=== PATIENT | female | born 1985 | race American Indian/Alaskan Native ===

== ENCOUNTER 2016-11-30 06:55 | Inpatient (IN) | payer MEDICAID ==
[2016-11-30] MEDS ORDERED: PHENERGAN PO PRN ×2 (07:25→11:00)
[2016-11-30] MEDS ORDERED: XYLOCAINE 2% INFILTRATI ONE (07:25)
[2016-11-30] MEDS ORDERED: BRETHINE SUB-Q PRN (07:25)
[2016-11-30] MEDS ORDERED: STADOL IV PRN (07:25)
[2016-11-30] MEDS ORDERED: ePHEDrine SULFATE IV PRN (07:25)
[2016-11-30] MEDS ORDERED: BRETHINE IVP PRN (07:30)
[2016-11-30 08:00] LABS: Hematocrit 36.2 % (30.3-42.9); Hemoglobin 11.8 gm/dl (10.1-14.3); Mean Corpuscular HGB Conc 33 % (30-34); Mean Corpuscular Hemoglobin 27 pg (28-32); Mean Corpuscular Volume 84 fl (79-97); Red Blood Count 4.31 M/mm3 (3.65-5.03); Red Cell Distribution Width 14.4 % (13.2-15.2); White Blood Count 10.5 K/mm3 (4.5-11.0)
[2016-11-30] MEDS ORDERED: PITOCin/NS 20 UNIT/1000ML DRIP 20 UNITS/1,000 ML BAG IV SCH (08:00)
[2016-11-30] MEDS ORDERED: LACTATED RINGERS 1,000 ML IV SCH (08:00)
[2016-11-30 08:02] LABS: Urine Drugs of Abuse Note Disclamer
[2016-11-30 08:03] LABS: Platelet Count 63 K/mm3 (140-440)
--- NOTE | 2016-11-30 08:36 | History and Physical Report ---
History of Present Illness Date of examination: 11/30/16 Date of admission: 11/30/16 06:57 History of present illness: This is a walk-in patient was [facility]. Patient presented with regular contractions and ruptured the membranes. Patient initial exam 5 cm. She progressed quickly to complete dilatation. Patient is a history of decreased platelets and states she had a platelet count of 30,000 weeks ago and has been on 20 mg of prednisone since. Patient was actively pushing when I arrived Past History Past Medical History: other (a station of thrombocytopenia) Past Surgical History: no surgical history - Obstetrical History Expected Date of Delivery: 12/11/16 Actual Gestation: 38 Week(s) 3 Day(s) : 6 Para: 5 Medications and Allergies Allergies Allergy/AdvReac Type Severity Reaction Status Date / Time No Known Allergies Allergy Unverified 11/30/16 07:27 Active Meds: Active Medications Butorphanol Tartrate (Stadol) 2 mg IV Q2H PRN PRN Reason: Pain , Severe (7-10) Ampicillin Sodium (Polycillin/Ns 1 Gm/50 Ml) 1 gm in 50 mls @ 100 mls/hr IV Q4H ZOEY PRN Reason: Protocol Lactated Ringer's (Lactated Ringers) 1,000 mls @ 125 mls/hr IV DIRECT ZOEY Oxytocin/Sodium Chloride (Pitocin/Ns 20 Unit/1000ml Drip) 20 units in 1,000 mls @ 125 mls/hr IV DIRECT ZOEY Mineral Oil (Mineral Oil) 30 ml PO QHS PRN PRN Reason: Constipation Promethazine HCl (Phenergan) 25 mg PO Q6H PRN PRN Reason: Nausea And Vomiting - Vital Signs Vital signs: Vital Signs Pulse BP 78 125/78 11/30/16 07:09 11/30/16 07:09 Temp Pulse Resp BP Pulse Ox 98.2 F 69 106/51 11/30/16 07:40 11/30/16 08:26 11/30/16 08:26 - Physical Exam Breasts: Positive: deferred Cardiovascular: Regular rate Lungs: Positive: Normal air movement Abdomen: Positive: normal appearance, soft Genitourinary (Female): Positive: normal external genitalia Vagina: Positive: normal moisture Anus/Rectum: Positive: normal perianal skin Extremities: Positive: normal - Obstetrical FHR: category 2 Cervical Dilatation: 10 Cervical Effacement Percentage: 100 station: +1 Uterine Contraction Pattern: Regular Uterine Contraction Intensity: Strong/Firm Results Result Diagrams: 11/30/16 07:30 Abnormal lab results 11/30/16 Range/Units 07:30 MCH 27 L (28-32) pg Plt Count 63 L (140-440) K/mm3 All other labs normal. Assessment and Plan - Patient Problems (1) with 38 completed weeks gestation Current Visit: Yes Status: Acute (2) Gestational thrombocytopenia without hemorrhage in third trimester Current Visit: Yes Status: Acute (3) Active labor at term Current Visit: Yes Status: Acute (4) Premature rupture of membranes Current Visit: Yes Status: Acute Qualifiers: PROM onset of labor timing: onset of labor within 24 hours of rupture PROM gestational age: full term Qualified Code(s): O42.02 - Full-term premature rupture of membranes, onset of labor within 24 hours of rupture Plan to address problem: Admit for delivery. Will obtain labs patient without any records
--- NOTE | 2016-11-30 08:48 | Procedure Note ---
OB Delivery Note - Delivery Date of Delivery: 11/30/16 Surgeon: ASHLEY COLEY Estimated blood loss: 300cc - Vaginal Delivery presentation: vertex Delivery position: OA Intrapartum events: precipitous labor- <3hr Delivery induction: none Delivery monitor: external FHT, external uterine Route of delivery: Delivery placenta: spontaneous Delivery cord: nuchal cord Episiotomy: none Delivery laceration: none Anesthesia: none Delivery comments: Upon transferring from triage in labor and delivery patient was completely dilated and quickly delivered the complicated . - A at 1 minute: 8 at 5 minutes: 9 Gender: Male
[2016-11-30] MEDS ORDERED: TYLENOL PO PRN (10:30)
[2016-11-30] MEDS: FEOSOL PO SCH ×2 (10:35→22:20)
[2016-11-30] MEDS: PRENATAL VITAMIN PO SCH (10:36)
[2016-11-30] MEDS ORDERED: BENADRYL PO PRN (11:00)
[2016-11-30] MEDS ORDERED: DERMOPLAST TP PRN (11:00)
[2016-11-30] MEDS ORDERED: MILK OF MAGNESIA PO PRN (11:00)
[2016-11-30] MEDS ORDERED: SODIUM CHLORIDE FLUSH SYRINGE 10 ML IV NR (11:00)
[2016-11-30] MEDS ORDERED: POLYCILLIN/NS 1 GM/50 ML 1 GM/50 ML BAG IV SCH (11:00)
[2016-11-30] MEDS ORDERED: TUCKS PAD TP PRN (11:00)
[2016-11-30] MEDS ORDERED: LANSINOH TP PRN (11:00)
[2016-11-30] MEDS ORDERED: DULCOLAX PR PRN (11:00)
[2016-11-30 11:03] LABS: HIV-1 Antigen p24 Non React (Non React); HIVR-1/2 Ab Non React (Non React)
[2016-11-30] MEDS: MOTRIN PO SCH ×2 (12:21→18:28)
[2016-11-30 17:32] LABS: Hematocrit 36.7 % (30.3-42.9); Hemoglobin 11.7 gm/dl (10.1-14.3); Mean Corpuscular HGB Conc 32 % (30-34); Mean Corpuscular Hemoglobin 27 pg (28-32); Mean Corpuscular Volume 84 fl (79-97); Red Blood Count 4.37 M/mm3 (3.65-5.03); Red Cell Distribution Width 14.3 % (13.2-15.2); White Blood Count 12.5 K/mm3 (4.5-11.0)
[2016-11-30 17:38] LABS: Platelet Count 58 K/mm3 (140-440)
[2016-11-30] MEDS ORDERED: MINERAL OIL PO PRN (22:00)
[2016-11-30] MEDS: COLACE PO SCH (22:20)
[2016-12-01] MEDS: MOTRIN PO SCH ×2 (05:42→18:29)
--- NOTE | 2016-12-01 08:20 | Discharge Summary ---
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 Condition at discharge: Good Disposition: DISCHARGED TO HOME OR SELFCARE - Discharge Diagnoses (1) Spontaneous vaginal delivery Status: Acute Comment: follow up with OB provider in 4-6 weeks Plan - Provider Discharge Summary Activity: routine, no sex for 6 weeks, no heavy lifting 4 weeks, no strenuous exercise Diet: routine Instructions: routine Additional instructions: [] Smoking cessation referral if applicable(refer to patient education folder for contact #) [] Refer to [facility] Booklet Call your doctor immediately for: * Fever > 100.5 * Heavy vaginal bleeding ( >1 pad per hour) * Severe persistent headache * Shortness of breath * Reddened, hot, painful area to leg or breast * Drainage or odor from incision. * Keep incision clean and dry at all times and follow doctor's instructions regarding bathing/showering - Follow up plan Follow up: ASHLEY COLEY MD [Primary Care Provider] - 6 Weeks (Call your OB provider and schedule a visit in 4-6 weeks. Over the counter Motrin for cramping is recommended. Call with concerns. )
[2016-12-01] MEDS: NORCO 5/325 PO PRN (08:45)
[2016-12-01] MEDS: FEOSOL PO SCH ×2 (10:48→23:05)
[2016-12-01] MEDS: PRENATAL VITAMIN PO SCH (10:49)
[2016-12-01] MEDS: NYSTATIN PO SCH (14:52)
[2016-12-01] MEDS: COLACE PO SCH ×2 (16:22→23:04)
[2016-12-02] MEDS: NORCO 5/325 PO PRN (08:00)
[2016-12-02] MEDS: NYSTATIN PO SCH (09:17)
[2016-12-02] MEDS: FEOSOL PO SCH (10:24)
[2016-12-02] MEDS: PRENATAL VITAMIN PO SCH (10:25)
[2016-12-02 11:07] VITALS: BP 98/68
--- NOTE | 2016-12-03 08:12 | Vascular Lab Report ---
Left Lower Extremity Venous Duplex Study: Reason for Exam: Left leg pain. Comments on the Right: A limited duplex study was done of the proximal veins of the right lower extremity. All veins visualized are freely compressible without evidence of internal echogenicity. Flow is spontaneous and phasic throughout. No evidence of acute or chronic thrombus is seen in any of the vessels visualized. Comments on the Left: All veins visualized are freely compressible without evidence of internal echogenicity. Flow is spontaneous and phasic throughout. No evidence of acute or chronic thrombus is seen in any of the vessels visualized. Impression: No evidence of acute or chronic deep venous thrombosis in the left lower extremity.
== END 2016-12-02 11:00 | disposition home or self-care (01) | DRG 775 ==
LOC: TRG 06:55 → LD 06:57 → OB 09:00
PROVIDERS: ADMIT Obstetrics & Gynecology; ATTEND Obstetrics & Gynecology
PROC: 10E0XZZ Delivery of Products of Conception, External Approach (ICD-10-PCS; principal; 2016-11-30)
DX: O42.02 Full-term premature rupture of membranes, onset of labor within 24 hours of rupture (principal); O99.12 Other diseases of the blood and blood-forming organs and certain disorders involving the immune mechanism complicating childbirth; D69.6 Thrombocytopenia, unspecified; O69.81X0 Labor and delivery complicated by cord around neck, without compression, not applicable or unspecified; O62.3 Precipitate labor; Z3A.38 38 weeks gestation of pregnancy; Z37.0 Single live birth
CPT/HCPCS: 36415; 80307; 85027; 85660; 86706; 86762; 86803; 86850; 86900; 86901; 87806; 99211; A6250; G0463; J2590; J7120

== ENCOUNTER 2018-01-12 10:41 | Inpatient (IN) | payer MEDICAID ==
[2018-01-12] MEDS ORDERED: ZOFRAN IV PRN (10:47)
[2018-01-12] MEDS ORDERED: BRETHINE IVP PRN (10:47)
[2018-01-12] MEDS ORDERED: ePHEDrine SULFATE IV PRN (10:47)
[2018-01-12] MEDS ORDERED: SUBLIMAZE IV PRN (10:47)
[2018-01-12] MEDS ORDERED: STADOL IV PRN (10:47)
[2018-01-12] MEDS ORDERED: MINERAL OIL PO PRN (10:47)
--- NOTE | 2018-01-12 10:55 | History and Physical Report ---
History of Present Illness Date of examination: 01/12/18 (sent from office advance dilated; @ 39 weeks ) Date of admission: 01/12/18 10:41 History of present illness: EDC Confirmation: 01/19/2018 Gestational Age: 14 3/7 weeks Past History : 9 Premature Births: 0 Para: 6 Aborta: 2 Past Medical History: thrombocytopenia Past Surgical History: negative Past Medical History Anesthesia Complications: negative Anemia: negative Autoimmune Disorder: negative Bleeding Disorder: negative Blood Transfusions: negative Breast Disease: negative Diabetes: negative Heart Disease: negative Hypertension: negative Hepatitis/Liver Disease: negative Kidney Disease/UTI: negative Neurologic/Epilepsy/Migraines: negative Phlebitis/Varicosities: negative Psychiatric: negative Pulmonary Disease/Asthma: negative Thyroid Disease: negative Hospitalizations: negative Surgery (Non-electrocardiographic technician): negative Abnormal PAP: negative HOLA Exposure: negative Infertility: negative Uterine Anomaly: negative Uterine Surgery (not C/S): negative Other Gynecologic Problems: negative Family Hx: Lupus - sister, aunt,MGM No FH cancer 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 of genital herpes: no Partner hx. of genital herpes: no Rash, Viral, or Febrile illness since last LMP? no Varicella/Chicken Pox Status: Previous Disease Genetic History Congenital Heart Defect: Mom: no Dad: no Fernando Disease: Mom: no Dad: no Thalassemia Mom: no Dad: no Neural Tube Defect Mom: no Dad: no Down's Syndrome Mom: no Dad: no Pradeep-Sachs Mom: no Dad: no Sickle Cell Disease/Trait Mom: no Dad: no Hemophilia Mom: no Dad: no Muscular Dystrophy Mom: no Dad: no Cystic Fibrosis Mom: no Dad: no [place] Chorea Mom: no Dad: no Mental Retardation Mom: no Dad: no Fragile X Mom: no Dad: no Other Genetic/Chromosomal Disorder Mom: no Dad: no Child w/other defect Mom: no Dad: no Enviromental Exposures Xray Exposure: no Medication, drug, or alcohol use since LMP: no Chemical/Other Exposure: no Exposure to Cat Liter: no Hx of Parvovirus (Fifth Disease): no Occupational Exposure to Children: none Active Medications (reviewed today): None Current Allergies (reviewed today): No known allergies Laboratory Results Urine HCG: positive Review of Systems General Denies fever, chills, sweats, anorexia, fatigue, weakness, malaise, weight loss and sleep disorder. Denies nausea, vomiting, headache, swelling of legs, abdominal pain, vaginal discharge, vaginal bleeding and contractions. Denies vaginal discharge, incontinence, dysuria, hematuria, urinary frequency, amenorrhea, menorrhagia, abnormal vaginal bleeding, pelvic pain, genital sores, decreased libido, painful periods, painful sex, urinary urgency, hot flashes, vaginal dryness, vaginal itching and vaginal odor. CV Denies chest pains, palpitations, syncope, dyspnea on exertion, orthopnea, PND and peripheral edema. Resp Denies cough, dyspnea at rest, excessive sputum, hemoptysis, wheezing and pleurisy. GI Denies nausea, vomiting, diarrhea, constipation, change in bowel habits, abdominal pain, melena, hematochezia, jaundice, gas/bloating, indigestion/ heartburn, dysphagia and odynophagia. Endo Denies cold intolerance, heat intolerance, polydipsia, polyphagia, polyuria and unusual weight change. Breast Denies left breast lump, right breast lump, nipple discharge, bloody discharge from nipple, breast pain, abnormal mammogram and breast enlargement. MS Denies back pain, joint pain, joint swelling, muscle cramps, muscle weakness, stiffness, arthritis, sciatica, restless legs, leg pain at night and leg pain with exertion. Derm Denies rash, itching, dryness and suspicious lesions. Neuro Denies paralysis, paresthesias, headache, seizures, tremors, vertigo, transient blindness, frequent falls, frequent headaches and difficulty walking. Psych Denies depression, anxiety, irritability and mood swings. Eyes Denies blurring, diplopia, irritation, discharge, vision loss, eye pain and photophobia. ENT Denies earache, ear discharge, tinnitus, decreased hearing, nasal congestion, nosebleeds, sore throat and hoarseness. Allergy Denies urticaria, allergic rash, hay fever and recurrent infections. Heme Denies abnormal bruising, bleeding and enlarged lymph nodes. 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/Vagina: No lesions, normal BUS, normal rugae Cervix: No lesions; no cervical motion tenderness Uterus: normal size and position, midline, mobile Fundal Ht: 14 weeks Adnexae: no masses or tenderness Rectovaginal: no masses or tenderness Past History - Obstetrical History Expected Date of Delivery: 01/19/18 Actual Gestation: 39 Week(s) 0 Day(s) : 9 Para: 6 Hx # Term Pregnancies: 6 Induced : 2 Number of Living Children: 6 Medications and Allergies Allergies Allergy/AdvReac Type Severity Reaction Status Date / Time No Known Allergies Allergy Unverified 11/30/16 07:27 Home Medications Medication Instructions Recorded Confirmed Last Taken Type Ferrous Sulfate [Feosol] 325 mg PO QDAY 11/30/16 11/30/16 11/29/16 History 325 mg Vit-Fe Fumar-FA [ 1 tab PO QDAY 11/30/16 11/30/16 11/29/16 History Vitamin] 1 tab predniSONE [Deltasone] 20 mg PO TID 11/30/16 11/30/16 11/29/16 History 20 mg - Physical Exam Breasts: Positive: normal Cardiovascular: Regular rate, Normal S1, Normal S2 Lungs: Positive: Normal air movement Abdomen: Positive: normal appearance, soft, normal bowel sounds. Negative: distention, tenderness Genitourinary (Female): Positive: normal external genitalia Vulva: both: normal Vagina: Positive: normal moisture. Negative: discharge Cervix: Negative: lesion, discharge Uterus: Positive: normal size, normal contour Adnexa: both: normal Anus/Rectum: Positive: normal perianal skin, heme negative. Negative: rectal mass, hemorrhoids Extremities: Positive: normal Deep Tendon Reflex Grade: Normal +2 - Obstetrical FHR: category 1 Uterine Contraction Monitor Mode: External Cervical Dilatation: 6 (by CNM in office) Cervical Effacement Percentage: 90 station: 0 Uterine Contraction Pattern: Irregular Uterine Tone Measurement Phase: Resting Uterine Contraction Intensity: Mild Results All other labs normal. Strep Gp B HEMAL Negative HBsAg Screen Negative Negative *1 RPR Non Reactive Non Reactive *2 Rubella Antibodies, IgG 9.49 index Immune >0.99 *3 Non-immune <0.90 Equivocal 0.90 - 0.99 Immune >0.99 ABO Grouping A *4 Rh Factor Positive *5 Please note: Prior records for this patient's ABO / Rh type are not available for additional verification. Antibody Screen Negative Negative *6 WBC 6.1 x10E3/uL 3.4-10.8 *7 RBC 4.35 x10E6/uL 3.77-5.28 *8 Hemoglobin 11.5 g/dL 11.1-15.9 *9 Effective August 24, 2017 the reference interval for Hemoglobin MALES only will be changing to: Males 13-15 years: 12.6 - 17.7 Males >15 years: 13.0 - 17.7 Hematocrit 34.7 % 34.0-46.6 *10 MCV 80 fL 79-97 *11 MCH [L] 26.4 pg 26.6-33.0 *12 MCHC 33.1 g/dL 31.5-35.7 *13 RDW [H] 15.8 % 12.3-15.4 *14 Platelets [L] 131 x10E3/uL 150-379 *15 Neutrophils 66 % Not Estab. *16 Lymphs 23 % Not Estab. *17 Monocytes 8 % Not Estab. *18 Eos 3 % Not Estab. *19 Basos 0 % Not Estab. *20 ! Immature Cells <No Reported Value> *21 Neutrophils (Absolute) 4.0 x10E3/uL 1.4-7.0 *22 Lymphs (Absolute) 1.4 x10E3/uL 0.7-3.1 *23 Monocytes(Absolute) 0.5 x10E3/uL 0.1-0.9 *24 Eos (Absolute) 0.2 x10E3/uL 0.0-0.4 *25 Baso (Absolute) 0.0 x10E3/uL 0.0-0.2 *26 ! Immature Granulocytes 0 % Not Estab. *27 ! Immature Grans (Abs) 0.0 x10E3/uL 0.0-0.1 *28 ! NRBC <No Reported Value> *29 Hematology Comments: <No Reported Value> *30 Tests: (2) AFP Tetra ([id number]) ! Results Report *31 ! Test Results: *Screen Negative* *32 ! Tests: (3) Cystic Fibrosis Profile ([id number]) ! CF, Screen Comment: *55 RESULTS: Negative for 32 mutations analyzed Tests: (4) HB Solu + Rflx Frac (324001) Hemoglobin (Hgb) Solubility: Sickle Cell Trait [A] Positive Negative *57 Tests: (6) Panel 827607 ([id number]) HIV Screen 4th Generation wRfx Non Reactive Non Reactive *65 Tests: (7) HCV Ab w/Rflx to Verification ([id number]) ! HCV Ab <0.1 s/co ratio 0.0-0.9 *66 Tests: (8) Comment: ([id number]) ! Comment: SPRCS *67 Non reactive HCV antibody screen is consistent with no HCV infection, unless recent infection is suspected or other evidence exists to indicate HCV infection. Tests: (9) Urine Culture, Routine ([id number]) Urine Culture, Routine Final report *68 Tests: (10) Result ([id number]) ! Result 1 MUG *69 Mixed urogenital micaela 10,000-25,000 colony forming units per mL Assessment and Plan 32yo @ 39 weeks with advance dilatation. Thrombocytopenia Pt declined to see hematology. Pt declines regional anesthesia. GBS negative. Orders in EMR Anticipate delivery.
[2018-01-12] MEDS ORDERED: PITOCin/NS 20 UNIT/1000ML DRIP 20 UNITS/1,000 ML BAG IV SCH ×2 (11:00→16:00)
[2018-01-12] MEDS ORDERED: PITOCin/NS 30 UNIT/500ML 30 UNITS/500 ML BAG IV SCH (11:00)
[2018-01-12] MEDS ORDERED: XYLOCAINE 2% INFILTRATI ONE (11:00)
[2018-01-12 11:48] LABS: Mean Corpuscular Volume 80 fl (79-97)
[2018-01-12 11:57] LABS: Hematocrit 34.7 % (30.3-42.9); Hemoglobin 11.4 gm/dl (10.1-14.3); Mean Corpuscular HGB Conc 33 % (30-34); Mean Corpuscular Hemoglobin 26 pg (28-32); Red Blood Count 4.33 M/mm3 (3.65-5.03); Red Cell Distribution Width 13.4 % (13.2-15.2)
[2018-01-12 11:58] LABS: Platelet Count 74 K/mm3 (140-440)
[2018-01-12] MEDS: LACTATED RINGERS 1,000 ML IV SCH (12:15)
[2018-01-12] MEDS ORDERED: BICITRA ONE (15:31)
[2018-01-12] MEDS ORDERED: PEPCID IV ONE (15:32)
[2018-01-12] MEDS ORDERED: REGLAN ONE (15:32)
[2018-01-12] MEDS ORDERED: REGLAN IV SCH (15:32)
--- NOTE | 2018-01-12 15:32 | Progress Note ---
Assessment and Plan SVE 6-7,90,-1 Was attempting internal monitors Discovered face presentation c/ s called Dr.Royster arnold Subjective - Subjective Date of service: 01/12/18 (sve face presentation) Interval history: EDC Confirmation: 01/19/2018 Gestational Age: 14 3/7 weeks Past History : 9 Premature Births: 0 Para: 6 Aborta: 2 Past Medical History: thrombocytopenia Past Surgical History: negative Past Medical History Anesthesia Complications: negative Anemia: negative Autoimmune Disorder: negative Bleeding Disorder: negative Blood Transfusions: negative Breast Disease: negative Diabetes: negative Heart Disease: negative Hypertension: negative Hepatitis/Liver Disease: negative Kidney Disease/UTI: negative Neurologic/Epilepsy/Migraines: negative Phlebitis/Varicosities: negative Psychiatric: negative Pulmonary Disease/Asthma: negative Thyroid Disease: negative Hospitalizations: negative Surgery (Non-musical instrument maker): negative Abnormal PAP: negative HOLA Exposure: negative Infertility: negative Uterine Anomaly: negative Uterine Surgery (not C/S): negative Other Gynecologic Problems: negative Family Hx: Lupus - sister, aunt,MGM No FH cancer 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 of genital herpes: no Partner hx. of genital herpes: no Rash, Viral, or Febrile illness since last LMP? no Varicella/Chicken Pox Status: Previous Disease Genetic History Congenital Heart Defect: Mom: no Dad: no Fernando Disease: Mom: no Dad: no Thalassemia Mom: no Dad: no Neural Tube Defect Mom: no Dad: no Down's Syndrome Mom: no Dad: no Pradeep-Sachs Mom: no Dad: no Sickle Cell Disease/Trait Mom: no Dad: no Hemophilia Mom: no Dad: no Muscular Dystrophy Mom: no Dad: no Cystic Fibrosis Mom: no Dad: no [place] Chorea Mom: no Dad: no Mental Retardation Mom: no Dad: no Fragile X Mom: no Dad: no Other Genetic/Chromosomal Disorder Mom: no Dad: no Child w/other defect Mom: no Dad: no Enviromental Exposures Xray Exposure: no Medication, drug, or alcohol use since LMP: no Chemical/Other Exposure: no Exposure to Cat Liter: no Hx of Parvovirus (Fifth Disease): no Occupational Exposure to Children: none Active Medications (reviewed today): None Current Allergies (reviewed today): No known allergies Laboratory Results Urine HCG: positive Review of Systems General Denies fever, chills, sweats, anorexia, fatigue, weakness, malaise, weight loss and sleep disorder. Denies nausea, vomiting, headache, swelling of legs, abdominal pain, vaginal discharge, vaginal bleeding and contractions. Denies vaginal discharge, incontinence, dysuria, hematuria, urinary frequency, amenorrhea, menorrhagia, abnormal vaginal bleeding, pelvic pain, genital sores, decreased libido, painful periods, painful sex, urinary urgency, hot flashes, vaginal dryness, vaginal itching and vaginal odor. CV Denies chest pains, palpitations, syncope, dyspnea on exertion, orthopnea, PND and peripheral edema. Resp Denies cough, dyspnea at rest, excessive sputum, hemoptysis, wheezing and pleurisy. GI Denies nausea, vomiting, diarrhea, constipation, change in bowel habits, abdominal pain, melena, hematochezia, jaundice, gas/bloating, indigestion/ heartburn, dysphagia and odynophagia. Endo Denies cold intolerance, heat intolerance, polydipsia, polyphagia, polyuria and unusual weight change. Breast Denies left breast lump, right breast lump, nipple discharge, bloody discharge from nipple, breast pain, abnormal mammogram and breast enlargement. MS Denies back pain, joint pain, joint swelling, muscle cramps, muscle weakness, stiffness, arthritis, sciatica, restless legs, leg pain at night and leg pain with exertion. Derm Denies rash, itching, dryness and suspicious lesions. Neuro Denies paralysis, paresthesias, headache, seizures, tremors, vertigo, transient blindness, frequent falls, frequent headaches and difficulty walking. Psych Denies depression, anxiety, irritability and mood swings. Eyes Denies blurring, diplopia, irritation, discharge, vision loss, eye pain and photophobia. ENT Denies earache, ear discharge, tinnitus, decreased hearing, nasal congestion, nosebleeds, sore throat and hoarseness. Allergy Denies urticaria, allergic rash, hay fever and recurrent infections. Heme Denies abnormal bruising, bleeding and enlarged lymph nodes. 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 Absent: distention, tenderness Uterus: Present: normal FHR: auscultation normal, category 1 Cervical Dilatation: 6.5 (face) Cervical Effacement Percentage: 90 station: -1 Uterine Contraction Pattern: Regular Uterine Tone Measurement Phase: Resting Uterine Contraction Intensity: Moderate Extremities: normal Deep Tendon Reflex Grade: Normal +2 - Labs Labs: Abnormal Labs 01/12/18 11:15 MCH 26 L Plt Count 74 L Laboratory Results - last 24 hr 01/12/18 01/12/18 01/12/18 11:13 11:15 11:15 WBC 5.2 RBC 4.33 Hgb 11.4 Hct 34.7 MCV 80 MCH 26 L MCHC 33 RDW 13.4 Plt Count 74 L RPR Nonreactive Blood Type A POSITIVE Antibody Screen Negative
[2018-01-12] MEDS ORDERED: ANCEF/STERILE WATER 2 GM/20 ML 2 GM/20 ML SYRINGE IV NR (16:00)
[2018-01-12] MEDS ORDERED: LACTATED RINGERS 1,000 ML IV SCH (16:00)
[2018-01-12] MEDS ORDERED: DIPRIVAN 10 MG/ML IV ONE (16:00)
[2018-01-12] MEDS ORDERED: XYLOCAINE MPF 2% ONE (16:04)
[2018-01-12] MEDS ORDERED: QUELICIN ONE (16:04)
[2018-01-12] MEDS ORDERED: SUBLIMAZE ONE (16:06)
--- NOTE | 2018-01-12 16:12 | Event Note ---
Date: 01/12/18 Called by [facility] for Breech presentation, however bedside US revealed cephalic. Pelvic exam revealed hand/wrist/forearm presentation at 6.5cm/80/-1. Arm only descends with contractions and head is being pushed to maternal right; she is a grand multip who presented at ~10a at 6cm. Contractions have been adequate with minimal cervical change. Findings were explained to the patient and her , concern for arm injury and arrest of dilation explained. Options reviewed, continued ELSIE with risks vs c/s and risks. Questions were encouraged and answered. Patient and voiced understanding and desire to proceed with delivery. Consents reviewed and signed.
[2018-01-12] MEDS ORDERED: METHERGINE IM ONE (16:15)
[2018-01-12] MEDS ORDERED: ANCEF/STERILE WATER 2 GM/20 ML IV ONE (16:29)
[2018-01-12] MEDS: PITOCin/NS 20 UNIT/1000ML DRIP 20 UNITS/1,000 ML BAG IV SCH ×2 (16:37→18:19)
[2018-01-12] MEDS ORDERED: ePHEDrine SULFATE ONE (16:56)
[2018-01-12] MEDS ORDERED: HEMABATE IM ONE (17:00)
[2018-01-12] MEDS ORDERED: PEPCID IV SCH (17:00)
[2018-01-12] MEDS ORDERED: BICITRA PO ONE (17:00)
[2018-01-12] MEDS ORDERED: NEO SYNEPHRINE/NS Syringe(OR USE) IV ONE ×2 (17:08)
[2018-01-12] MEDS ORDERED: MILK OF MAGNESIA PO PRN (17:12)
[2018-01-12] MEDS ORDERED: TUCKS PAD TP PRN (17:12)
[2018-01-12] MEDS ORDERED: LANSINOH TP PRN (17:12)
[2018-01-12] MEDS ORDERED: TYLENOL PO PRN (17:12)
[2018-01-12] MEDS ORDERED: NARCAN 0.4 MG/1 ML IV PRN ×2 (17:12→17:28)
[2018-01-12] MEDS ORDERED: TORADOL IV PRN (17:12)
[2018-01-12] MEDS ORDERED: MORPHINE IV PRN (17:12)
[2018-01-12] MEDS ORDERED: MYLICON PO PRN (17:12)
[2018-01-12] MEDS ORDERED: CYTOTEC PR ONE (17:15)
--- NOTE | 2018-01-12 17:25 | Post Operative Note ---
Pre-op diagnosis: IUP@39 weeks, fail to dilate, malpresentation Post-op diagnosis: same Procedure: LTCS Anesthesia: GETA Surgeon: ANABELLE BROUSSARD Concrete Float Maker: DANIE WEBSTER Estimated blood loss: other (800) Condition: stable Disposition: PACU
[2018-01-12] MEDS ORDERED: VERSED ONE (17:35)
[2018-01-12] MEDS ORDERED: SODIUM CHLORIDE FLUSH SYRINGE 10 ML IV NR (18:00)
[2018-01-12] MEDS ORDERED: DILAUDID PCA 6MG/30ML IV SCH (18:00)
[2018-01-12] MEDS ORDERED: MORPHINE PCA 30MG/30ML IV SCH (18:00)
--- NOTE | 2018-01-12 18:21 | Anesthesia Consultation ---
Anesthesia Consult and Med Hx Date of service: 01/12/18 - Airway Anesthetic Teeth Evaluation: Poor ROM Head & Neck: Adequate Mental/Hyoid Distance: Adequate Mallampati Class: Class II Intubation Access Assessment: Probably Good - Pulmonary Exam CTA: Yes - Pre-Operative Health Status ASA Pre-Surgery Classification: ASA2 - Pulmonary Hx Asthma: No COPD: No Hx Pneumonia: No - Cardiovascular System Hx Hypertension: No - Central Nervous System Hx Seizures: No Hx Psychiatric Problems: No - Endocrine Hx Renal Disease: No Hx End Stage Renal Disease: No Hx Hypothyroidism: No Hx Hyperthyroidism: No - Hematic Hx Anemia: No Hx Sickle Cell Disease: No - Other Systems Hx Alcohol Use: No
--- NOTE | 2018-01-12 18:21 | Anesthesia Day of Surgery ---
Anesthesia Day of Surgery - Day of Surgery Patient Examined: Yes Patient H&P Reviewed: Yes Patient is NPO: Yes
[2018-01-12] MEDS ORDERED: WATER FOR IRRIG STERILE IR ONE (18:30)
[2018-01-12] MEDS ORDERED: NACL 0.9% IR ONE (18:30)
[2018-01-12] MEDS: TYLENOL PO SCH (22:34)
[2018-01-12] MEDS: METHERGINE PO SCH (22:34)
[2018-01-13] MEDS: NEURONTIN PO SCH ×3 (02:49→23:46)
[2018-01-13] MEDS: LACTATED RINGERS 1,000 ML IV SCH (02:50)
[2018-01-13] MEDS: TYLENOL PO SCH ×3 (02:50→20:00)
--- NOTE | 2018-01-13 03:55 | Post Anesthesia Evaluation ---
- Post Anesthesia Evaluation Patient Participated: Yes Airway Patent: Yes Stable Respiratory Function: Yes Nausea/Vomiting: No Temp > 96.8F: Yes Pain Manageable: Yes Adequeate Hydration: Yes Anesthesia Complications: No Block Receding Appropriately: Not Applicable Patient on Ventilator: No
[2018-01-13] MEDS: ceFAZolin 1 GM in NACL 0.9% 20 ML IV SCH ×2 (04:07→12:58)
[2018-01-13 04:09] LABS: Hematocrit 32.8 % (30.3-42.9); Hemoglobin 10.8 gm/dl (10.1-14.3)
[2018-01-13] MEDS ORDERED: ANCEF/NS 1 GM/50 ML 1 GM/50 ML BAG IV SCH (04:30)
[2018-01-13] MEDS: METHERGINE PO SCH ×2 (06:15→12:58)
--- NOTE | 2018-01-13 08:17 | Progress Note ---
Assessment and Plan Patient resting, c/o cramping in lower abdomen. Incision dressed - dry ( RN to remove today), VSSAF, H&H 10.8/32.8, lochia scant. Continue postop pathway. Patent requesting d/c home tomorrow if possible. - Patient Problems (1) delivery delivered Current Visit: Yes Status: Acute Subjective - Subjective Date of service: 01/13/18 Principal diagnosis: postop day #1 s/p primary c/s Patient reports: appetite normal, voiding normally, pain well controlled, ambulating normally, no dizzy ambulation, no nauseated [place]: in NICU Objective - Vital Signs Latest vital signs: Vital Signs Temp Pulse Resp BP BP Pulse Ox 01/13/18 06:08 18 01/13/18 04:20 98.2 F 82 18 96/59 01/13/18 04:00 18 01/13/18 03:50 18 01/13/18 02:50 18 01/13/18 02:00 18 01/13/18 00:00 98.2 F 65 16 100/50 01/12/18 23:34 18 01/12/18 22:30 16 01/12/18 20:15 98.2 F 77 18 108/57 01/12/18 19:30 98.1 F 01/12/18 19:25 82 15 102/68 97 01/12/18 19:20 66 11 L 100/60 97 01/12/18 19:15 69 9 L 101/70 98 01/12/18 19:10 77 11 L 105/72 100 01/12/18 19:05 77 16 107/71 99 01/12/18 19:00 77 26 H 111/76 99 01/12/18 18:55 66 12 95/68 97 01/12/18 18:50 72 13 104/75 99 01/12/18 18:45 67 11 L 105/58 99 01/12/18 18:40 78 14 102/67 98 01/12/18 18:36 78 11 L 107/78 97 01/12/18 18:30 88 16 92/48 72 L 01/12/18 18:25 76 14 100/46 100 01/12/18 18:20 69 14 99/53 100 01/12/18 18:15 67 17 94/56 100 01/12/18 18:10 71 21 96/62 100 01/12/18 18:05 67 19 93/54 100 01/12/18 18:00 70 20 98/55 100 01/12/18 17:55 71 17 97/56 100 01/12/18 17:50 73 12 101/58 100 01/12/18 17:45 73 14 99/63 100 01/12/18 17:40 74 13 102/60 100 01/12/18 17:38 77 15 100 01/12/18 17:35 97.7 F 01/12/18 12:22 98.6 F 16 Intake and Output 01/12/18 01/13/18 01/13/18 23:59 07:59 15:59 Intake Total 3525 240 Output Total 750 1200 Balance 2775 -960 Intake: IV 3525 Lactated Ringers 1,000 ml 1000 @ 125 mls/hr IV DIRECT ZOEY Rx#:[id number] PITOCin/NS 20 UNIT/1000ML 425 DRIP 20 units In 1,000 ml @ 250 mls/hr IV DIRECT ZOEY Rx#:[id number] Oral 240 Output: Urine 750 1200 Void 1200 Other: Total, Intake Amount 240 Total, Output Amount 1200 Estimated Blood Loss 800 - Exam Breasts: Present: normal Cardiovascular: Present: Regular rate Lungs: Present: Clear to auscultation, Normal air movement Abdomen: Present: normal appearance, soft, normal bowel sounds Vulva: both: normal Uterus: Present: normal, firm, fundal height at umbilicus Extremities: Present: normal Deep Tendon Reflex Grade: Normal +2 Incision: Present: normal, dry, dressed - Labs Labs: Abnormal lab results 01/12/18 Range/Units 11:15 MCH 26 L (28-32) pg Plt Count 74 L (140-440) K/mm3
[2018-01-13] MEDS: FEOSOL PO SCH (08:18)
[2018-01-13] MEDS: PERCOCET 5/325 PO PRN ×3 (10:12→23:49)
[2018-01-13] MEDS: NORCO 5/325 PO PRN ×2 (13:06→20:18)
[2018-01-13] MEDS ORDERED: BOOSTRIX IM ONE (17:13)
[2018-01-13] MEDS ORDERED: M-M-R II VACCINE SUB-Q ONE (17:13)
--- NOTE | 2018-01-14 06:48 | Discharge Summary ---
Providers - Providers Date of Admission: 01/12/18 10:41 Date of discharge: 01/14/18 (pt requests d/c; despite NB being in NICU) Attending physician: ANABELLE BROUSSARD Primary care physician: ASHLEY COLEY Hospitalization Reason for admission: active labor Delivery: (malpresentation) Procedure: primary low transverse Episiotomy: none Laceration: none Incision: normal, dry, intact Other procedures: none complications: none Discharge diagnosis: IUP at term delivered baby: male Hospital course: active labor; malpresentation uncomplicated section Pt A&O X 3 Desires d/c today VSS FF below umb Lochia small Incision D&I H&H drop r/t blood loss from surgery Pt is asymptomatic Doing well s/p c/s P: d/ c today with instructions. Baby remains NICU Pt still desires d/c. RTO 1 week for postop and circ Condition at discharge: Good Disposition: DC-01 TO HOME OR SELFCARE - Discharge Diagnoses (1) delivery delivered Status: Acute Comment: RTO 1 week postop care Plan - Discharge Medications Prescriptions: Ibuprofen [Motrin 800 MG tab] 800 mg PO TID PRN #30 tablet PRN Reason: Pain Lidocain2.5%/Prilocai2.5% [Emla] 5 gm TP PRN #1 tube - Provider Discharge Summary Activity: routine, no sex for 6 weeks, no heavy lifting 4 weeks, no strenuous exercise Diet: routine Instructions: routine Additional instructions: [] Smoking cessation referral if applicable(refer to patient education folder for contact #) [] Refer to [facility]'s [facility] Booklet Call your doctor immediately for: * Fever > 100.5 * Heavy vaginal bleeding ( >1 pad per hour) * Severe persistent headache * Shortness of breath * Reddened, hot, painful area to leg or breast * Drainage or odor from incision. * Keep incision clean and dry at all times and follow doctor's instructions regarding bathing/showering - Follow up plan Follow up: ASHLEY COLEY MD [Primary Care Provider] - 7 Days (Congratulations! Please call [phone] to schedule your postoperative visit and your son's circumcision in 1 week. Bring the EMLA cream with you to his visit. Do NOT use cream at home. Take medications as directed. Call with concerns.)
[2018-01-14] MEDS: FEOSOL PO SCH (09:28)
[2018-01-14] MEDS: NEURONTIN PO SCH ×2 (09:28→22:07)
[2018-01-14] MEDS: PERCOCET 5/325 PO PRN ×2 (09:30→16:47)
--- NOTE | 2018-01-14 20:43 | Operative Report ---
Operative Report Operative Report: Date: 01/12/2018 Preoperative diagnosis: 1. Intrauterine at 39 weeks 2. Failure to dilate with arm presentation 3. Thrombocytopenia Postoperative diagnosis: 1. Intrauterine at 39 weeks 2. Failure to dilate with arm presentation 3. Thrombocytopenia Procedure: Low uterine transverse incision for delivery Surgeon: Celeste Sosa MD Distance Education Teacher: Lilia Barreto CNM Anesthesia: Gen. endotracheal anesthesia Anesthesiologist: Dinh Lynch M.D. Estimated blood loss: 800 mL Urine out: [] mL Findings: Live born male infant. Weight 7 lbs. 5 oz. Apgars 7 at 1 minute and 8 at 9 minutes. Uterus normal, tubes normal next feels normal, ovaries normal. Procedure: After risk, benefits, complications, consequences and alternatives for this procedure were discussed with patient and consents were reviewed and signed, she was taken to the OR where she was placed in the left lateral tilt position, and prepped and draped in the usual sterile fashion. Timeout was performed and and general endotracheal anesthesia was performed. A Pfannenstiel incision was made and extended to the fascia which was incised and extended in the lateral directions. The overlying fascia was sharply dissected away from the underlying rectus muscles in the superior and inferior directions. The midline was entered bluntly. The vesicouterine fold was incised and with blunt dissection the bladder flap was created. A transverse incision was made in the lower uterine segment and extended in superiolateral direction with finger fractionation. Scant clear fluid was noted. The was delivered from cephalic position. Mouth and nose were bulb suctioned. Spontaneous cry and excellent tone were noted. Cord was doubly clamped and cut. The was given to /resuscitation team present. The placenta was manually extracted. The uterus was then exteriorized and cleared of any further products of conception or placental tissue. The incision was reapproximated using 0 Vicryl in a running interlocking stitch. Grossly normal uterus, tubes and ovaries were noted. Once hemostasis was noted, the uterus was allowed back into the pelvic cavity. The pelvis was irrigated with warm normal saline. Again hemostasis was noted . Surgicel applied for further hemostasis. Then attention was turned to the rectus muscles. The rectus muscles reapproximated using 0 Vicryl in a simple interrupted stitch x 3. Once hemostasis was noted, the fascia was reapproximated using 0 Vicryl running stitch fashion. Once hemostasis was noted skin incision was reapproximated using 4-0 Vicryl on a Aristeo needle in a subcuticular manner. Counts were correct 3. Patient tolerated procedure well state recovery room in stable condition.
[2018-01-15 09:30] VITALS: BP 104/69
[2018-01-15] MEDS: FEOSOL PO SCH (10:17)
[2018-01-15] MEDS: NORCO 5/325 PO PRN (10:17)
[2018-01-15] MEDS: NEURONTIN PO SCH (10:22)
== END 2018-01-15 15:30 | disposition home or self-care (01) | DRG 765 ==
LOC: LD 10:41 → OB 20:23
PROVIDERS: ADMIT Obstetrics & Gynecology; ATTEND Obstetrics & Gynecology
PROC: 3E0234Z Introduction of Serum, Toxoid and Vaccine into Muscle, Percutaneous Approach (ICD-10-PCS; 2018-01-12)
PROC: 10D00Z1 Extraction of Products of Conception, Low, Open Approach (ICD-10-PCS; principal; 2018-01-14)
DX: O64.4XX0 Obstructed labor due to shoulder presentation, not applicable or unspecified (principal); O99.12 Other diseases of the blood and blood-forming organs and certain disorders involving the immune mechanism complicating childbirth; D69.6 Thrombocytopenia, unspecified; O62.0 Primary inadequate contractions; Z3A.39 39 weeks gestation of pregnancy; Z37.0 Single live birth; Z23 Encounter for immunization; Z84.89 Family history of other specified conditions
CPT/HCPCS: 36415; 85014; 85018; 85027; 86592; 86850; 86900; 86901; 99211; G0463; J0330; J0690; J1170; J2250; J2370; J2590; J2704; J2765; J3010; J7120

== ENCOUNTER 2019-12-14 18:48 | Emergency (ER) | payer SELFPAY ==
--- NOTE | 2019-12-14 19:21 | Emergency Department Report ---
Blank Doc - Documentation Documentation: 34-year-old female that presents with left sided chest pain with radiation to back. Denies any SOB. This initial assessment/diagnostic orders/clinical plan/treatment(s) is/are subject to change based on patient's health status, clinical progression and re- assessment by fellow clinical providers in the ED. Further treatment and workup at subsequent clinical providers discretion. Patient/guardians urged not to elope from the ED as their condition may be serious if not clinically assessed and managed. Initial orders include: 1- Patient sent to [facility] for further evaluation and treatment 2- CXR 3- EKG
[2019-12-14 19:24] VITALS: BP 105/80
--- NOTE | 2019-12-14 20:30 | XRay Report ---
CHEST 2 VIEWS INDICATION / CLINICAL INFORMATION: Chest pain. COMPARISON: None available. FINDINGS: SUPPORT DEVICES: None. HEART / MEDIASTINUM: No significant abnormality. LUNGS / PLEURA: No significant pulmonary or pleural abnormality. No pneumothorax. ADDITIONAL FINDINGS: No significant additional findings. IMPRESSION: No acute finding. Signer Name: Kristian Christine MD Signed: 12/14/2019 8:25 PM Workstation Name: [id number]
--- NOTE | 2019-12-14 22:31 | Emergency Department Report ---
ED Fever HPI - General Chief Complaint: Chest Pain Stated Complaint: CP/DISCOMFORT/LFT ARM PAIN Time Seen by Provider: 12/14/19 19:20 - History of Present Illness Initial Comments: 34-year-old female with emerge department complaining of acid reflux and indigestion symptoms that radiate to her lower neck and left collarbone region/associated with certain position and meals. She reports no hemoptysis no hematemesis no fever, chills, sweats no palpitations no nausea vomiting she reports having a tingling sensation in her left arm while she was at work and was advised to come to the emergency department for for further treatment and evaluation. States that it was she feels well ED Review of Systems ROS: Stated complaint: CP/DISCOMFORT/LFT ARM PAIN Other details as noted in HPI Comment: All other systems reviewed and negative ED Past Medical Hx - Past Medical History Hx Hypertension: No Hx Congestive Heart Failure: No Hx Diabetes: No Hx Deep Vein Thrombosis: No Hx Renal Disease: No Hx Sickle Cell Disease: No Hx Seizures: No Hx Asthma: No Hx COPD: No Hx HIV: No - Surgical History Past Surgical History?: No - Social History Smoking Status: Never Smoker Substance Use Type: None - Medications Home Medications: Home Medications Medication Instructions Recorded Confirmed Last Taken Type Ferrous Sulfate [Feosol] 325 mg PO QDAY 11/30/16 01/12/18 11/29/16 History 325 mg Vit-Fe Fumar-FA [ 1 tab PO QDAY 11/30/16 01/12/18 11/29/16 History Vitamin] 1 tab predniSONE [Deltasone] 20 mg PO TID 11/30/16 01/12/18 11/29/16 History 20 mg Gabapentin [Neurontin] 600 mg PO BID 5 Days #10 tablet 01/14/18 Unknown Rx Ibuprofen [Motrin 800 MG tab] 800 mg PO TID PRN #30 tablet 01/14/18 Unknown Rx Lidocain2.5%/Prilocai2.5% [Emla] 5 gm TP PRN #1 tube 01/14/18 Unknown Rx oxyCODONE /ACETAMINOPHEN [Percocet 1 - 2 tab PO Q4HR PRN #30 tablet 01/14/18 Unknown Rx 5/325 mg] Omeprazole 40 mg PO DAILY #30 capsule. 12/14/19 Unknown Rx ED Physical Exam - General Limitations: No Limitations General appearance: alert, in no apparent distress - Head Head exam: Present: atraumatic, normocephalic - Eye Eye exam: Present: normal appearance - ENT ENT exam: Present: mucous membranes moist - Neck Neck exam: Present: normal inspection - Respiratory Respiratory exam: Present: normal lung sounds bilaterally. Absent: respiratory distress - Cardiovascular Cardiovascular Exam: Present: regular rate, normal rhythm. Absent: systolic murmur, diastolic murmur, rubs, gallop - GI/Abdominal GI/Abdominal exam: Present: soft, normal bowel sounds - Extremities Exam Extremities exam: Present: normal inspection - Back Exam Back exam: Present: normal inspection - Neurological Exam Neurological exam: Present: alert, oriented X3 - Psychiatric Psychiatric exam: Present: normal affect, normal mood - Skin Skin exam: Present: warm, dry, intact, normal color. Absent: rash ED Course Vital Signs 12/14/19 19:22 Temperature 98.3 F Pulse Rate 75 Respiratory 16 Rate Blood Pressure 105/80 O2 Sat by Pulse 100 Oximetry ED Medical Decision Making - Medical Decision Making This patient presents with chest pain that is very unlikely angina or acute coronary syndrome. The emergency department evaluation has not identified any cause for suspicion that this chest pain has a cardiac etiology. Based on their history, EKG (which showed no evidence of ischemia or infarction) and imaging, in addition to the patient's physical exam, I see no evidence at this time for a malignant etiology for the patient's chest pain. There is no acute evidence for pulmonary embolus, acute myocardial infarction, pneumothorax, Boerhaeve syndrome, cardiac tamponade, thoracic artery dissection, or any other emergent cardiac, pulmonary or aortic pathology. Given the low pre-test probability for cardiac etiology of chest pain and the absence of any sign of ischemia or infarction, discharge for outpatient follow-up and further evaluation is reasonable. I have explained to the patient that even though a cardiac problem is very unlikely, follow-up and further testing is required to reduce further the already small uncertainty that exists. Other life-threatening diagnoses have been considered. The patient understands the need to return immediately if their symptoms worsen or they develop any new symptoms, and not to engage in any significant exertional activity until follow-up is obtained. Critical care attestation.: If time is entered above; I have spent that time in minutes in the direct care of this critically ill patient, excluding procedure time. ED Disposition Clinical Impression: Chest pain, Dyspepsia Disposition: TO HOME OR SELFCARE Is pt being admited?: No Does the pt Need Aspirin: No Condition: Stable Instructions: Chest Pain (ED), Gastroesophageal Reflux Disease (ED), Diet for Ulcers and Gastritis (ED) Prescriptions: Omeprazole 40 mg PO DAILY #30 capsule. Referrals: PRIMARY CARE, [Primary Care Provider] - 3-5 Days [facility] [Provider Group] - 3-5 Days
== END 2019-12-14 23:27 | disposition home or self-care (01) ==
LOC: ED 18:48
DX: R07.89 Other chest pain (principal); R10.13 Epigastric pain
CPT/HCPCS: 71046; 93005; 93010